=== PATIENT | male | born 1970 | race Caucasian/White ===

== ENCOUNTER 2016-11-29 08:33 | Day surgery (SDC) ==
[2016-11-29] MEDS ORDERED: VERSED ONE (11:19)
[2016-11-29] MEDS ORDERED: DIPRIVAN 20 ML VIAL IVP ONE (11:19)
[2016-11-29 12:39] VITALS: BP 103/72; TEMP 97.6
--- NOTE | 2016-11-30 10:39 | OP ---
INDICATIONS FOR PROCEDURE: 46-year-old gentleman presents for colonoscopy and endoscopy exam. He was hospitalized about 1 1/2 weeks ago at [facility]. He was having some vague abdominal discomfort in the right side. He also had complained of bright red blood per rectum. He is scheduled for endoscopy and colonoscopy exam. MEDICATIONS: SEE ANESTHESIA NOTES. PROCEDURE: 1. ENDOSCOPY, MARCUS BIOPSY. 2. COLONOSCOPY. REPORT: The risks, benefits, alternatives and limitations were discussed in detail with the patient. Informed consent was obtained. After adequate sedation was achieved, the video endoscope was introduced in the posterior pharynx and esophagus under direct vision. I easily advanced down to the second portion of the duodenum. I then slowly withdrew. The duodenal mucosa appeared unremarkable as did the duodenal bulb. The antrum and body were relatively unremarkable. The scope was retroflexed to look at the cardia and fundus which was unremarkable. The scope was anteflexed and two biopsies from the antral wall and from the body obtained for H. Pylori testing. I then withdrew the scope back through the esophagus which appeared unremarkable. The patient tolerated the procedure well with stable vital signs and pulse oximetry throughout. The patient's bed was turned. A digital rectal exam revealed good tone, no masses. Colonoscope is introduced in the rectum and was advanced under direct visual guidance to the cecum. The cecum was identified by the appendiceal orifice and IC valve. I was able to intubate the terminal ileum and examined a distance of 10 cm. This appeared unremarkable. I then slowly withdrew the scope in a circumferential manner examining the mucosa quite carefully. I looked on the proximal and distal side of folds and flexures as best as possible. I was able to retroflex the scope in the right colon and left colon to increase visualization. The colonic mucosa was unremarkable its entire length including on retroflex view of the anal canal. The prep was good. The withdrawal time is 7 minutes and 59 seconds. The patient tolerated the procedure well with stable vital signs and pulse oximetry throughout. IMPRESSION: 1. NORMAL UPPER ENDOSCOPY EXAM. 2. NORMAL COLONOSCOPY EXAM INCLUDING THE TERMINAL ILEUM. RECOMMENDATIONS: 1. High fiber diet. 2. Await H. Pylori. If positive, will initiate treatment. 3. Will see him back in the office as needed. 4. Screening colon examination again in 10 years, sooner if signs or symptoms indicate otherwise. 5. Continue to follow with his primary care. CC: DR. RENETTA GUADARRAMA
== END 2016-11-29 12:54 | disposition home or self-care (01) ==
LOC: SURG 08:33
PROVIDERS: ATTEND Internal Medicine Gastroenterology
DX: R10.9 Unspecified abdominal pain (principal); K62.5 Hemorrhage of anus and rectum
CPT/HCPCS: 87339